=== PATIENT | female | born 1965 | race Caucasian/White ===

== ENCOUNTER 2019-09-01 10:33 | Inpatient (IN) | payer MEDICAID ==
[~2019-09-01] VITALS: Ht 149.9 cm; Wt 61.7 kg
[2019-09-01] MEDS ORDERED: DIPH25 PO (11:29)
[2019-09-01] MEDS ORDERED: DULO20CA30 PO (11:29)
[2019-09-01] MEDS ORDERED: METF-960 PO (11:29)
[2019-09-01 11:34] VITALS: BP 157/91
[2019-09-01] MEDS ORDERED: INFLUENZA VIRUS VACCINE QVS 2019-20 (3YR+)/PF 60 MCG/0.5 ML SYRINGE IM ONE (11:45)
[2019-09-01] MEDS ORDERED: LORazepam 2 MG TABLET PO PRN (11:45)
[2019-09-01] MEDS ORDERED: PNEUMOCOCCAL VACCINE POLYVALENT 0.5 ML VIAL [PPSV23] IM ONE (11:45)
[2019-09-01] MEDS ORDERED: HALOPERIDOL 5 MG TABLET PO PRN (11:45)
[2019-09-01 12:32] VITALS: BP 158/87
[2019-09-01] MEDS ORDERED: DOCUSATE SODIUM 100 MG CAPSULE PO PRN (15:15)
[2019-09-01] MEDS ORDERED: ONDANSETRON HCL 4 MG TABLET PO PRN (15:15)
[2019-09-01] MEDS ORDERED: ALBUTEROL SULFATE HFA 90 MCG/PUFF 8 GM INHALER IH PRN (15:15)
[2019-09-01] MEDS ORDERED: NICOTINE 14 MG/24 HOUR PATCH TD PRN (15:15)
[2019-09-01] MEDS: AmLODIPine BESYLATE 5 MG TABLET PO SCH (15:15)
[2019-09-01] MEDS ORDERED: GuaiFENesin/D-METHORPHAN [SUGAR-FREE] 200-20MG/10 ML SYRUP UDCUP PO PRN (15:15)
[2019-09-01] MEDS ORDERED: MAG HYDROX/AL HYDROX/SIMETH ES 30 ML SUSPENSION UDCUP PO PRN (15:15)
[2019-09-01] MEDS ORDERED: PETROLATUM,WHITE 28 GM JELLY TP PRN (15:15)
[2019-09-01] MEDS ORDERED: CloNIDine HCL 0.1 MG TABLET PO PRN (15:15)
[2019-09-01] MEDS ORDERED: MAGNESIUM HYDROXIDE SUSPENSION 30 ML UDCUP PO PRN (15:15)
[2019-09-01] MEDS ORDERED: IBUPROFEN 400 MG TABLET PO PRN (15:15)
[2019-09-01] MEDS ORDERED: LOPERAMIDE HCL 2 MG CAPSULE PO PRN (15:15)
[2019-09-01 16:29] VITALS: BP 156/78
[2019-09-01 21:12] VITALS: BP 135/78
[2019-09-02 04:31] VITALS: BP 137/79
[2019-09-02] MEDS: MetFORMIN HCL 500 MG TABLET PO SCH (07:02)
[2019-09-02] MEDS: AmLODIPine BESYLATE 5 MG TABLET PO SCH (08:08)
[2019-09-02 08:20] VITALS: BP 133/80
[2019-09-02] MEDS: DULoxetine HCL 30 MG CAPSULE PO SCH (10:00)
[2019-09-02] MEDS: DIVALPROEX SODIUM 500 MG ER TABLET PO SCH ×2 (10:00→17:00)
[2019-09-02] MEDS ORDERED: DiphenhydrAMINE HCL 50 MG/ML VIAL IM ONE ×2 (12:00→16:30)
[2019-09-02] MEDS ORDERED: LORazepam 2 MG/ML VIAL IM ONE ×2 (12:00→16:30)
[2019-09-02] MEDS ORDERED: HALOPERIDOL LACTATE 5 MG/ML VIAL IM ONE ×2 (12:00→16:30)
[2019-09-02] MEDS ORDERED: DiphenhydrAMINE HCL 50 MG/ML VIAL ONE ×2 (12:02→16:21)
[2019-09-02] MEDS ORDERED: LORazepam 2 MG/ML VIAL ONE ×2 (12:02→16:21)
[2019-09-02] MEDS ORDERED: HALOPERIDOL LACTATE 5 MG/ML VIAL ONE ×2 (16:22)
[2019-09-03 05:56] VITALS: BP 154/87
[2019-09-03] MEDS: MetFORMIN HCL 500 MG TABLET PO SCH (06:34)
[2019-09-03 08:18] VITALS: BP 110/67
[2019-09-03] MEDS: AmLODIPine BESYLATE 5 MG TABLET PO SCH ×2 (08:49→09:00)
[2019-09-03] MEDS: DULoxetine HCL 30 MG CAPSULE PO SCH ×2 (08:49→09:00)
[2019-09-03] MEDS: DIVALPROEX SODIUM 500 MG ER TABLET PO SCH ×3 (08:49→17:00)
[2019-09-03 16:39] VITALS: BP 136/67
[2019-09-04 00:22] VITALS: BP 139/80
[2019-09-04] MEDS: MetFORMIN HCL 500 MG TABLET PO SCH (06:38)
[2019-09-04 08:27] VITALS: BP 130/80
[2019-09-04] MEDS: DULoxetine HCL 30 MG CAPSULE PO SCH (09:00)
[2019-09-04] MEDS: DIVALPROEX SODIUM 500 MG ER TABLET PO SCH ×2 (09:00→16:45)
[2019-09-04] MEDS: AmLODIPine BESYLATE 5 MG TABLET PO SCH (09:00)
[2019-09-04 16:27] VITALS: BP 130/75
[2019-09-04] MEDS: ZOLPIDEM TARTRATE 10 MG TABLET PO PRN (20:47)
[2019-09-05 06:28] VITALS: BP 134/80
[2019-09-05] MEDS: MetFORMIN HCL 500 MG TABLET PO SCH (06:34)
[2019-09-05 08:17] VITALS: BP 153/75
[2019-09-05 08:21] LABS: BASOPHILS % (AUTO) 1.1 % (0.0-2.0); EOSINOPHILS % (AUTO) 1.6 % (1.0-6.0); HEMATOCRIT 42.2 % (36-46); LYMPHOCYTES # (AUTO) 3.1 K/uL (1.0-4.8); LYMPHOCYTES % (AUTO) 38.9 % (22.0-44.0); MEAN CORPUSCULAR HEMOGLOBIN 30.5 pg (26.0-34.0); MEAN CORPUSCULAR HGB CONC 33.1 G/dL (31.0-37.0); MEAN CORPUSCULAR VOLUME 92 fL (80-100); MONOCYTES # (AUTO) 0.7 K/uL (0.1-1.0); MONOCYTES % (AUTO) 8.4 % (2.0-9.0); PLATELET COUNT (AUTO) 335 K/uL (150-450); RED BLOOD CELL COUNT(AUTO) 4.59 MIL/uL (4.00-5.20); RED CELL DISTRIBUTION WIDTH 12.8 % (11.5-14.5)
[2019-09-05] MEDS: DIVALPROEX SODIUM 500 MG ER TABLET PO SCH ×2 (08:22→16:43)
[2019-09-05] MEDS: DULoxetine HCL 30 MG CAPSULE PO SCH (08:23)
[2019-09-05] MEDS: AmLODIPine BESYLATE 5 MG TABLET PO SCH (08:23)
[2019-09-05 09:12] LABS: HEMOGLOBIN A1C 11.1 % (4.5-6.2)
[2019-09-05 09:32] LABS: ALANINE AMINOTRANSFERASE 23 U/L (12-78); ALBUMIN 3.8 g/dL (3.4-5.0); ALKALINE PHOSPHATASE 90 U/L (46-116); ANION GAP 11 mmol/L (8-16); ASPARTATE AMINOTRANSFERASE 13 U/L (15-37); BILIRUBIN,TOTAL 0.3 mg/dL (0.1-1.0); CARBON DIOXIDE 27 mmol/L (22-29); CHLORIDE 100 mmol/L (98-107); CHOL/HDL RATIO 4.3 (3.9-5.7); CHOLESTEROL 130 mg/dL (131-200); CREATININE 0.53 mg/dL (0.60-1.30); FREE T4 (FREE THYROXINE) 1.37 ng/dL (0.76-1.46); GLOMERULAR FILTR. RATE CALC > 60 mL/min (>60); GLUCOSE,RANDOM 303 mg/dL (70-110); HDL CHOLESTEROL 30 mg/dL (40-60); LDL CHOL (CALC.) 82 mg/dL (0-130); POTASSIUM 3.7 mmol/L (3.5-5.1); SODIUM SERUM 138 mmol/L (136-145); THYROID STIMULATING HORMONE 2.54 uIU/mL (0.36-3.74); TOTAL PROTEIN, SERUM 8.1 g/dL (6.4-8.2); TRIGLYCERIDES 88 mg/dL (15-150); UREA NITROGEN, BLOOD 8 mg/dL (7-18)
[2019-09-05 14:30] VITALS: BP 142/86
[2019-09-05 16:16] VITALS: BP 121/86
[2019-09-05] MEDS: ZOLPIDEM TARTRATE 10 MG TABLET PO PRN (22:21)
[2019-09-06 01:44] VITALS: BP 144/9
[2019-09-06] MEDS: MetFORMIN HCL 500 MG TABLET PO SCH ×2 (06:23→17:15)
[2019-09-06 06:24] LABS: GLUCOMETER DEV NAME(LOC) BV3S.; GLUCOSE,POINT OF CARE 365 MG/DL (70-110)
[2019-09-06] MEDS ORDERED: GLUCAGON,HUMAN RECOMBINANT 1 MG VIAL IM PRN (06:45)
[2019-09-06] MEDS: INSULIN LISPRO 100 UNITS/ML SQ PRN ×3 (07:03→20:31)
[2019-09-06] MEDS: DULoxetine HCL 30 MG CAPSULE PO SCH (08:07)
[2019-09-06] MEDS: AmLODIPine BESYLATE 5 MG TABLET PO SCH (08:07)
[2019-09-06] MEDS: DIVALPROEX SODIUM 500 MG ER TABLET PO SCH ×2 (08:07→17:15)
[2019-09-06 08:31] VITALS: BP 137/69
[2019-09-06] MEDS: ACETAMINOPHEN 325 MG TABLET PO PRN (09:35)
[2019-09-06 11:13] LABS: GLUCOMETER DEV NAME(LOC) BV3S.; GLUCOSE,POINT OF CARE 118 MG/DL (70-110)
[2019-09-06 16:29] VITALS: BP 146/78
[2019-09-06 16:38] LABS: GLUCOMETER DEV NAME(LOC) BV3S.; GLUCOSE,POINT OF CARE 267 MG/DL (70-110)
[2019-09-06 18:02] VITALS: BP 140/76
[2019-09-06] MEDS: ZOLPIDEM TARTRATE 10 MG TABLET PO PRN (20:32)
[2019-09-06 20:35] LABS: GLUCOMETER DEV NAME(LOC) BV3S.; GLUCOSE,POINT OF CARE 232 MG/DL (70-110)
[2019-09-07] MEDS: ACETAMINOPHEN 325 MG TABLET PO PRN (00:09)
[2019-09-07 02:18] VITALS: BP 140/79
[2019-09-07 06:05] LABS: GLUCOMETER DEV NAME(LOC) BV3S.; GLUCOSE,POINT OF CARE 237 MG/DL (70-110)
[2019-09-07] MEDS: MetFORMIN HCL 500 MG TABLET PO SCH ×2 (06:21→16:36)
[2019-09-07] MEDS: INSULIN LISPRO 100 UNITS/ML SQ PRN ×4 (06:23→20:45)
[2019-09-07 08:12] VITALS: BP 135/72
[2019-09-07] MEDS: AmLODIPine BESYLATE 5 MG TABLET PO SCH (08:24)
[2019-09-07] MEDS: DULoxetine HCL 30 MG CAPSULE PO SCH (08:24)
[2019-09-07] MEDS: DIVALPROEX SODIUM 500 MG ER TABLET PO SCH ×2 (08:24→16:36)
[2019-09-07 11:05] LABS: GLUCOMETER DEV NAME(LOC) BV3S.; GLUCOSE,POINT OF CARE 255 MG/DL (70-110)
[2019-09-07 16:22] LABS: GLUCOMETER DEV NAME(LOC) BV3S.; GLUCOSE,POINT OF CARE 193 MG/DL (70-110)
[2019-09-07 16:33] VITALS: BP 134/83
[2019-09-07 20:20] LABS: GLUCOMETER DEV NAME(LOC) BV3S.; GLUCOSE,POINT OF CARE 258 MG/DL (70-110)
[2019-09-07] MEDS: ZOLPIDEM TARTRATE 10 MG TABLET PO PRN (20:42)
[2019-09-08 01:22] VITALS: BP 130/85
[2019-09-08] MEDS: INSULIN LISPRO 100 UNITS/ML SQ PRN ×3 (06:16→20:28)
[2019-09-08 06:23] LABS: GLUCOMETER DEV NAME(LOC) BV3S.; GLUCOSE,POINT OF CARE 207 MG/DL (70-110)
[2019-09-08] MEDS: MetFORMIN HCL 500 MG TABLET PO SCH ×2 (06:50→16:38)
[2019-09-08] MEDS: DULoxetine HCL 30 MG CAPSULE PO SCH (08:04)
[2019-09-08] MEDS: AmLODIPine BESYLATE 5 MG TABLET PO SCH (08:04)
[2019-09-08] MEDS: DIVALPROEX SODIUM 500 MG ER TABLET PO SCH ×2 (08:04→16:38)
[2019-09-08 08:13] VITALS: BP 129/80
[2019-09-08 11:04] LABS: GLUCOMETER DEV NAME(LOC) BV3S.; GLUCOSE,POINT OF CARE 221 MG/DL (70-110)
[2019-09-08 16:28] VITALS: BP 128/81
[2019-09-08 20:51] LABS: GLUCOMETER DEV NAME(LOC) BV3S.; GLUCOSE,POINT OF CARE 222 MG/DL (70-110)
[2019-09-09 06:24] LABS: GLUCOMETER DEV NAME(LOC) BV3S.; GLUCOSE,POINT OF CARE 178 MG/DL (70-110)
[2019-09-09] MEDS: MetFORMIN HCL 500 MG TABLET PO SCH ×2 (06:42→16:16)
[2019-09-09 06:59] VITALS: BP 109/71
[2019-09-09 08:12] VITALS: BP 111/67
[2019-09-09] MEDS: AmLODIPine BESYLATE 5 MG TABLET PO SCH (08:29)
[2019-09-09] MEDS: DULoxetine HCL 30 MG CAPSULE PO SCH (08:29)
[2019-09-09] MEDS: DIVALPROEX SODIUM 500 MG ER TABLET PO SCH ×3 (08:32→16:20)
[2019-09-09] MEDS: INSULIN LISPRO 100 UNITS/ML SQ PRN ×2 (11:21→20:41)
[2019-09-09 13:30] LABS: GLUCOMETER DEV NAME(LOC) BV3S.; GLUCOSE,POINT OF CARE 255 MG/DL (70-110)
[2019-09-09 16:05] VITALS: BP 128/71
[2019-09-09] MEDS: ZOLPIDEM TARTRATE 10 MG TABLET PO PRN (20:12)
[2019-09-09 20:22] LABS: GLUCOMETER DEV NAME(LOC) BV3S.; GLUCOSE,POINT OF CARE 226 MG/DL (70-110)
[2019-09-10 03:10] VITALS: BP 115/69
[2019-09-10 06:22] LABS: GLUCOMETER DEV NAME(LOC) BV3S.; GLUCOSE,POINT OF CARE 238 MG/DL (70-110)
[2019-09-10] MEDS: MetFORMIN HCL 500 MG TABLET PO SCH ×2 (06:41→16:49)
[2019-09-10] MEDS: INSULIN LISPRO 100 UNITS/ML SQ PRN ×3 (06:43→17:03)
[2019-09-10] MEDS: AmLODIPine BESYLATE 5 MG TABLET PO SCH (08:03)
[2019-09-10] MEDS: DULoxetine HCL 30 MG CAPSULE PO SCH (08:03)
[2019-09-10] MEDS: DIVALPROEX SODIUM 500 MG ER TABLET PO SCH ×2 (08:07→16:49)
[2019-09-10 08:14] VITALS: BP 120/75
[2019-09-10 11:54] LABS: GLUCOMETER DEV NAME(LOC) BV3S.; GLUCOSE,POINT OF CARE 195 MG/DL (70-110)
[2019-09-10 16:07] VITALS: BP 128/72
[2019-09-10 16:52] LABS: GLUCOMETER DEV NAME(LOC) BV3S.; GLUCOSE,POINT OF CARE 245 MG/DL (70-110)
[2019-09-10] MEDS: ZOLPIDEM TARTRATE 10 MG TABLET PO PRN (22:55)
[2019-09-11] MEDS: MetFORMIN HCL 500 MG TABLET PO SCH ×2 (06:15→16:58)
[2019-09-11] MEDS: INSULIN LISPRO 100 UNITS/ML SQ PRN ×4 (06:18→20:07)
[2019-09-11 06:22] LABS: GLUCOMETER DEV NAME(LOC) BV3S.; GLUCOSE,POINT OF CARE 211 MG/DL (70-110)
[2019-09-11 08:28] VITALS: BP 144/103
[2019-09-11] MEDS: AmLODIPine BESYLATE 5 MG TABLET PO SCH (08:29)
[2019-09-11] MEDS: DULoxetine HCL 30 MG CAPSULE PO SCH (08:29)
[2019-09-11] MEDS: DIVALPROEX SODIUM 500 MG ER TABLET PO SCH ×2 (08:29→16:11)
[2019-09-11 10:30] VITALS: BP 134/88
[2019-09-11 11:54] LABS: GLUCOMETER DEV NAME(LOC) BV3S.; GLUCOSE,POINT OF CARE 238 MG/DL (70-110)
[2019-09-11 16:12] VITALS: BP 153/83
[2019-09-11 17:15] LABS: GLUCOMETER DEV NAME(LOC) BV3S.; GLUCOSE,POINT OF CARE 248 MG/DL (70-110)
[2019-09-11 18:37] VITALS: BP 128/70
[2019-09-11 20:32] LABS: GLUCOMETER DEV NAME(LOC) BV3S.; GLUCOSE,POINT OF CARE 280 MG/DL (70-110)
[2019-09-12] VITALS (7 sets, daily range): BP systolic 111–137; BP diastolic 72–84
[2019-09-12] MEDS: ZOLPIDEM TARTRATE 10 MG TABLET PO PRN (02:41)
[2019-09-12] MEDS: MetFORMIN HCL 500 MG TABLET PO SCH ×2 (06:14→16:39)
[2019-09-12] MEDS: INSULIN LISPRO 100 UNITS/ML SQ PRN ×3 (06:15→20:58)
[2019-09-12 06:20] LABS: GLUCOMETER DEV NAME(LOC) BV3S.; GLUCOSE,POINT OF CARE 195 MG/DL (70-110)
[2019-09-12] MEDS: DULoxetine HCL 30 MG CAPSULE PO SCH (08:31)
[2019-09-12] MEDS: AmLODIPine BESYLATE 5 MG TABLET PO SCH (08:31)
[2019-09-12] MEDS: DIVALPROEX SODIUM 500 MG ER TABLET PO SCH ×2 (08:36→16:39)
[2019-09-12 12:08] LABS: GLUCOMETER DEV NAME(LOC) BV3S.; GLUCOSE,POINT OF CARE 234 MG/DL (70-110)
[2019-09-12 21:07] LABS: GLUCOMETER DEV NAME(LOC) BV3S.; GLUCOSE,POINT OF CARE 261 MG/DL (70-110)
[2019-09-13 06:31] VITALS: BP 124/75
[2019-09-13] MEDS ORDERED: MetFORMIN HCL 500 MG TABLET PO SCH (07:00)
[2019-09-13 08:02] VITALS: BP 146/79
[2019-09-13] MEDS: DULoxetine HCL 30 MG CAPSULE PO SCH (08:43)
[2019-09-13] MEDS: AmLODIPine BESYLATE 5 MG TABLET PO SCH (08:43)
[2019-09-13] MEDS: DIVALPROEX SODIUM 500 MG ER TABLET PO SCH ×2 (08:45→16:36)
[2019-09-13] MEDS ORDERED: DENTURE ADHESIVE 68 GM CREAM DT PRN (15:15)
[2019-09-13 16:08] VITALS: BP 124/66
[2019-09-13] MEDS: MetFORMIN HCL 500 MG TABLET PO SCH (16:36)
[2019-09-13 20:15] LABS: GLUCOMETER DEV NAME(LOC) BV3S.; GLUCOSE,POINT OF CARE 238 MG/DL (70-110)
[2019-09-13] MEDS: INSULIN LISPRO 100 UNITS/ML SQ PRN (20:32)
[2019-09-14 05:58] VITALS: BP 136/77
[2019-09-14] MEDS: MetFORMIN HCL 500 MG TABLET PO SCH ×2 (06:36→17:00)
[2019-09-14 08:04] VITALS: BP 108/65
[2019-09-14 08:15] VITALS: BP 114/72
[2019-09-14] MEDS: AmLODIPine BESYLATE 5 MG TABLET PO SCH (08:27)
[2019-09-14] MEDS: DULoxetine HCL 30 MG CAPSULE PO SCH (08:30)
[2019-09-14] MEDS: DIVALPROEX SODIUM 500 MG ER TABLET PO SCH ×2 (08:31→17:00)
[2019-09-14 16:01] VITALS: BP 124/64
[2019-09-14] MEDS: INSULIN LISPRO 100 UNITS/ML SQ PRN (20:34)
[2019-09-14 20:35] LABS: GLUCOMETER DEV NAME(LOC) BV3S.; GLUCOSE,POINT OF CARE 288 MG/DL (70-110)
[2019-09-15 06:18] VITALS: BP 119/70
[2019-09-15] MEDS: MetFORMIN HCL 500 MG TABLET PO SCH ×2 (06:48→17:00)
[2019-09-15 08:14] VITALS: BP 116/66
[2019-09-15] MEDS: DULoxetine HCL 30 MG CAPSULE PO SCH (08:22)
[2019-09-15] MEDS: AmLODIPine BESYLATE 5 MG TABLET PO SCH (08:22)
[2019-09-15] MEDS: DIVALPROEX SODIUM 500 MG ER TABLET PO SCH ×2 (08:23→17:00)
[2019-09-15 16:01] VITALS: BP 115/68
[2019-09-16 06:20] VITALS: BP 121/77
[2019-09-16] MEDS: MetFORMIN HCL 500 MG TABLET PO SCH ×2 (06:51→17:00)
[2019-09-16] MEDS: AmLODIPine BESYLATE 5 MG TABLET PO SCH (08:09)
[2019-09-16] MEDS: DULoxetine HCL 30 MG CAPSULE PO SCH (08:09)
[2019-09-16] MEDS: DIVALPROEX SODIUM 500 MG ER TABLET PO SCH ×2 (08:15→17:00)
[2019-09-16 08:19] VITALS: BP 155/80
[2019-09-16 10:37] VITALS: BP 131/65
[2019-09-16 16:25] VITALS: BP 109/65
[2019-09-16] MEDS: ZOLPIDEM TARTRATE 10 MG TABLET PO PRN (23:36)
[2019-09-17] VITALS: BP 114/71
[2019-09-17] MEDS: MetFORMIN HCL 500 MG TABLET PO SCH ×2 (06:12→16:30)
[2019-09-17] MEDS: INSULIN LISPRO 100 UNITS/ML SQ PRN ×3 (06:13→20:52)
[2019-09-17 06:20] LABS: GLUCOMETER DEV NAME(LOC) BV3S.; GLUCOSE,POINT OF CARE 244 MG/DL (70-110)
[2019-09-17] MEDS: DULoxetine HCL 30 MG CAPSULE PO SCH (08:34)
[2019-09-17] MEDS: AmLODIPine BESYLATE 5 MG TABLET PO SCH (08:34)
[2019-09-17] MEDS: DIVALPROEX SODIUM 500 MG ER TABLET PO SCH ×2 (08:42→17:00)
[2019-09-17 12:03] LABS: GLUCOMETER DEV NAME(LOC) BV3S.; GLUCOSE,POINT OF CARE 265 MG/DL (70-110)
[2019-09-17] MEDS ORDERED: HALOPERIDOL LACTATE 5 MG/ML VIAL ONE (14:29)
[2019-09-17] MEDS ORDERED: LORazepam 2 MG/ML VIAL ONE (14:29)
[2019-09-17] MEDS ORDERED: DiphenhydrAMINE HCL 50 MG/ML VIAL ONE (14:29)
[2019-09-17] MEDS ORDERED: HALOPERIDOL LACTATE 5 MG/ML VIAL IM ONE (14:30)
[2019-09-17] MEDS ORDERED: DiphenhydrAMINE HCL 50 MG/ML VIAL IM ONE (14:30)
[2019-09-17] MEDS ORDERED: LORazepam 2 MG/ML VIAL IM ONE (14:30)
[2019-09-17 16:21] VITALS: BP 138/70
[2019-09-17 20:37] LABS: GLUCOMETER DEV NAME(LOC) BV3S.; GLUCOSE,POINT OF CARE 211 MG/DL (70-110)
[2019-09-18] MEDS: MetFORMIN HCL 500 MG TABLET PO SCH ×2 (06:27→16:29)
[2019-09-18 06:28] VITALS: BP 125/80
[2019-09-18] MEDS: INSULIN LISPRO 100 UNITS/ML SQ PRN ×3 (06:32→16:54)
[2019-09-18 06:35] LABS: GLUCOMETER DEV NAME(LOC) BV3S.; GLUCOSE,POINT OF CARE 183 MG/DL (70-110)
[2019-09-18 08:02] VITALS: BP 120/72
[2019-09-18] MEDS: DULoxetine HCL 30 MG CAPSULE PO SCH (08:29)
[2019-09-18] MEDS: AmLODIPine BESYLATE 5 MG TABLET PO SCH (08:29)
[2019-09-18] MEDS: DIVALPROEX SODIUM 500 MG ER TABLET PO SCH ×2 (08:32→16:31)
[2019-09-18 12:19] LABS: GLUCOMETER DEV NAME(LOC) BV3S.; GLUCOSE,POINT OF CARE 275 MG/DL (70-110)
[2019-09-18 16:06] VITALS: BP 121/65
[2019-09-18 17:17] LABS: GLUCOMETER DEV NAME(LOC) BV3S.; GLUCOSE,POINT OF CARE 259 MG/DL (70-110)
[2019-09-18 20:27] LABS: GLUCOMETER DEV NAME(LOC) BV3S.; GLUCOSE,POINT OF CARE 218 MG/DL (70-110)
[2019-09-19 03:10] VITALS: BP 116/72
[2019-09-19 06:05] LABS: GLUCOMETER DEV NAME(LOC) BV3S.; GLUCOSE,POINT OF CARE 208 MG/DL (70-110)
[2019-09-19] MEDS: MetFORMIN HCL 500 MG TABLET PO SCH ×2 (06:17→16:33)
[2019-09-19] MEDS: INSULIN LISPRO 100 UNITS/ML SQ PRN ×4 (06:19→20:36)
[2019-09-19 08:24] VITALS: BP 129/71
[2019-09-19] MEDS: AmLODIPine BESYLATE 5 MG TABLET PO SCH (08:29)
[2019-09-19] MEDS: DIVALPROEX SODIUM 500 MG ER TABLET PO SCH ×3 (08:29→16:42)
[2019-09-19] MEDS: DULoxetine HCL 30 MG CAPSULE PO SCH (08:29)
[2019-09-19 11:34] LABS: GLUCOMETER DEV NAME(LOC) BV3S.; GLUCOSE,POINT OF CARE 254 MG/DL (70-110)
[2019-09-19 16:01] VITALS: BP 134/55
[2019-09-19 17:11] LABS: GLUCOMETER DEV NAME(LOC) BV3S.; GLUCOSE,POINT OF CARE 258 MG/DL (70-110)
[2019-09-19 20:45] LABS: GLUCOMETER DEV NAME(LOC) BV3S.; GLUCOSE,POINT OF CARE 210 MG/DL (70-110)
[2019-09-20 06:01] LABS: GLUCOMETER DEV NAME(LOC) BV3S.; GLUCOSE,POINT OF CARE 211 MG/DL (70-110)
[2019-09-20] MEDS: MetFORMIN HCL 500 MG TABLET PO SCH ×2 (06:56→16:48)
[2019-09-20] MEDS: INSULIN LISPRO 100 UNITS/ML SQ PRN ×4 (06:58→20:21)
[2019-09-20 07:18] VITALS: BP 126/77
[2019-09-20] MEDS: DULoxetine HCL 30 MG CAPSULE PO SCH (08:01)
[2019-09-20] MEDS: AmLODIPine BESYLATE 5 MG TABLET PO SCH (08:01)
[2019-09-20] MEDS: DIVALPROEX SODIUM 500 MG ER TABLET PO SCH ×2 (08:01→16:48)
[2019-09-20 08:08] VITALS: BP 100/53
[2019-09-20 12:09] LABS: GLUCOMETER DEV NAME(LOC) BV3S.; GLUCOSE,POINT OF CARE 305 MG/DL (70-110)
[2019-09-20 16:01] VITALS: BP 126/77
[2019-09-20 17:15] LABS: GLUCOMETER DEV NAME(LOC) BV3S.; GLUCOSE,POINT OF CARE 225 MG/DL (70-110)
[2019-09-20 20:23] LABS: GLUCOMETER DEV NAME(LOC) BV3S.; GLUCOSE,POINT OF CARE 205 MG/DL (70-110)
[2019-09-20] MEDS: ZOLPIDEM TARTRATE 10 MG TABLET PO PRN (21:22)
[2019-09-20] MEDS ORDERED: METF-960 PO (22:03)
[2019-09-20] MEDS ORDERED: AMLO5TAB9 PO (22:03)
[2019-09-20] MEDS ORDERED: DULO30CA2 PO (22:03)
[2019-09-21 06:11] VITALS: BP 128/68
[2019-09-21] MEDS: INSULIN LISPRO 100 UNITS/ML SQ PRN (06:51)
[2019-09-21] MEDS: MetFORMIN HCL 500 MG TABLET PO SCH (06:52)
[2019-09-21 06:55] LABS: GLUCOMETER DEV NAME(LOC) BV3S.; GLUCOSE,POINT OF CARE 205 MG/DL (70-110)
[2019-09-21 08:26] VITALS: BP 118/77
[2019-09-21] MEDS: DULoxetine HCL 30 MG CAPSULE PO SCH (08:50)
[2019-09-21] MEDS: DIVALPROEX SODIUM 500 MG ER TABLET PO SCH (08:51)
[2019-09-21] MEDS: AmLODIPine BESYLATE 5 MG TABLET PO SCH (08:51)
[2019-09-21] MEDS ORDERED: DIVA500T52 PO (10:56)
== END 2019-09-21 14:27 | disposition home or self-care (01) | DRG 753 ==
LOC: B3A 11:38
PROVIDERS: ADMIT Psychiatry & Neurology Psychiatry; ATTEND Psychiatry & Neurology Psychiatry
DX: F31.64 Bipolar disorder, current episode mixed, severe, with psychotic features (principal); E11.9 Type 2 diabetes mellitus without complications; F31.9 Bipolar disorder, unspecified; G44.209 Tension-type headache, unspecified, not intractable; I10 Essential (primary) hypertension; F29 Unspecified psychosis not due to a substance or known physiological condition; Z88.5 Allergy status to narcotic agent; Z79.84 Long term (current) use of oral hypoglycemic drugs; Z79.899 Other long term (current) drug therapy
CPT/HCPCS: 83036; 84439; 84443; J1200; J1630; J2060